=== PATIENT | female | born 1940 | race Caucasian/White ===

== ENCOUNTER → 2016-10-19 | Outpatient (CLI) | payer MEDICARE, BC ==
[~2016-10-19] MED LIST: CLARITIN10 M3 PO; DIOVAN80 M1 PO; FIBERCON625 MG PO; FOLIC ACID800 MCG PO; LANTUS100 UNITS/ SUBQ; LEVAQUIN750 M1 PO; MAXILIFE RICE 51 CAP PO; MEGA RED PO; MULTI-VITAMIN1 EAC1 PO; NOVOLOG100 UNITS/ SUBQ; PLAVIX PO; RED YEAST RICE600 M1 PO; SODIUM BICARBO650 MG PO; STERAPRED5 MG/DOSE1 PO; STOOL SOFTENER100 M1 PO; TASPRIN325 MG PO; VITAMIN B-6200 MG PO; ZETIA PO
[2016-10-19 18:05] LABS: HEMATOCRIT 40.8 % (35.0-45.0); HEMOGLOBIN 13.3 gm/dL (12.0-16.0); MEAN CELL VOLUME 91.9 FL (83-96); MEAN CORPUSCULAR HEMOGLOBIN 30.1 PG (28-34); MEAN CORPUSCULAR HGB CONC 32.7 g/dL (30-36); RED BLOOD COUNT 4.44 X10e (3.90-5.30); RED CELL DISTRIBUTION WIDTH 12.9 % (11.0-15.5); WHITE BLOOD COUNT 9.1 X10e3 (4.0-10.5)
[2016-10-19 18:20] LABS: ALBUMIN SERUM 4.4 g/dL (3.5-5.0); BILIRUBIN,TOTAL 0.4 mg/dL (0.2-2.0); BUN/CREATININE RATIO 21.87; CALCIUM SERUM 9.9 mg/dL (8.4-10.2); CREATININE SERUM 1.6 mg/dL (0.6-1.4); GLOM FILT RATE Estimated 31.2 mL/min (>60); POTASSIUM 4.7 mmol/L (3.5-5.1); PROTEIN TOTAL SERUM 7.8 g/dL (6.0-8.3)
== END | disposition home or self-care (01) ==
LOC: CLAB 16:51
PROVIDERS: Internal Medicine
DX: N18.3 Chronic kidney disease, stage 3 (moderate) (principal)
CPT/HCPCS: 36415; 80053; 85027

== ENCOUNTER → 2017-04-01 | Outpatient (CLI) | payer MEDICARE, BC ==
[2017-04-01 16:59] LABS: HEMATOCRIT 38.9 % (35.0-45.0); MEAN CELL VOLUME 91.7 FL (83-96); MEAN CORPUSCULAR HEMOGLOBIN 30.6 PG (28-34); MEAN CORPUSCULAR HGB CONC 33.3 g/dL (30-36); MEAN PLATELET VOLUME 6.8 FL (6.5-11.5); RED BLOOD COUNT 4.25 X10e (3.90-5.30); RED CELL DISTRIBUTION WIDTH 13.1 % (11.0-15.5); WHITE BLOOD COUNT 7.8 X10e3 (4.0-10.5)
[2017-04-01 17:37] LABS: BUN/CREATININE RATIO 23.57; CALCIUM SERUM 9.3 mg/dL (8.4-10.2); CREATININE SERUM 1.4 mg/dL (0.6-1.4); GLOM FILT RATE Estimated 36.7 mL/min (>60); PHOSPHOROUS 3.9 mg/dL (2.5-4.6); POTASSIUM 4.6 mmol/L (3.5-5.1); URIC ACID 6.2 mg/dL (2.6-7.2)
[2017-04-04 23:58] LABS: CALCIUM (PTHINTACT) 9.5 mg/dL (8.6-10.4)
== END | disposition home or self-care (01) ==
LOC: CLAB 16:26
PROVIDERS: Internal Medicine
DX: I12.9 Hypertensive chronic kidney disease with stage 1 through stage 4 chronic kidney disease, or unspecified chronic kidney disease (principal); N18.3 Chronic kidney disease, stage 3 (moderate); E55.9 Vitamin D deficiency, unspecified
CPT/HCPCS: 80048; 82306; 82310; 83036; 83970; 84100; 84550; 85027

== ENCOUNTER 2017-04-03 19:41 | Emergency (ER) | payer MEDICARE, BC ==
[~2017-04-03] VITALS: Ht 160 cm; Wt 82.1 kg
--- NOTE | ~2017-04-03 | CR173 ---
[facility]. [facility] A Service of [facility] & [facility] RADIOLOGY TEXT RESULTS PATIENT: SALVATORE PABON LOCATION: SED : 42 UNIT #: [id number] AGE: [address]: Travon Link MD SEX: F ORDER DR: [id number] [address] [address] [id number] MR#: [id number] Acc #: [id number] NAME: SALVATORE PABON : 1940 SEX: F STUDY DATE/TIME: 04/03/2017 20:25 UNIT: SED ROOM: STUDY DESCRIPTION: CR Knee 3 Views Rt Attending Physician: Travon Link M.D. Ordering Physician: Travon Link M.D. Primary Care Physician: Kolton Armando M.D. MEDICAL IMAGING REPORT This report is preliminary unless electronic signature is present. EXAM Right knee series 04/03/2017 HISTORY Pain. Chronic pain anterior medial knee. 6 weeks duration. No known injury. FINDINGS AP lateral sunrise views of the right knee show no traumatic fracture of malalignment. Moderate generalized narrowing of the medial and lateral joint space compartment. Marked narrowing patellofemoral joint space compartment. Multiple articular surface marginal osteophyte formations. No definite joint effusion. No soft tissue defect, subcutaneous air or radiodense foreign body. Extensive atherosclerotic arterial calcification. If it would assist in patient management and patient is a candidate, the knee could be further evaluated with elective MRI. Dictated by... Travon Saunders M.D. THIS IS AN ELECTRONICALLY VERIFIED REPORT Travon Saunders M.D. at 04/05/2017 5:05 PM ROSMERY/garret TD: 04/05/2017 07:53 JOB #: [id number] MEDICAL IMAGING REPORT Page 1 of 1
== END 2017-04-03 22:49 | disposition home or self-care (01) ==
LOC: SED 19:41
DX: M25.561 Pain in right knee (principal); E11.22 Type 2 diabetes mellitus with diabetic chronic kidney disease; N18.9 Chronic kidney disease, unspecified
CPT/HCPCS: 73562; 99283